=== PATIENT | female | born 1985 | race African-American/Black ===

== ENCOUNTER 2016-09-26 01:32 | Emergency (ER) | payer SELFPAY ==
[~2016-09-26 01:32] MED LIST: COLACE-DPS100 MG PO; MOTRIN-DPS800 MG PO; MYLICON DPS80 MG PO; NIPPLECREAM TP; PERCOCET 5 DPS1 TAB PO; PRENATAL VIT1 TAB PO
--- NOTE | 2016-09-26 07:06 | ER ---
ADMIT: 09/26/2016 RM/LOC: ER [facility] MR#: [id number] [place], [place] [address] [address] DE [address] [place] [address] Emergency Room Report SEX: F AGE: 31 : 1985 DATE: 09/26/2016 The patient is a 31-year-old [place] female complaining of acute onset right- sided facial jaw, neck, and scalp pain. Exam remarkable for acutely uncomfortable, nontoxic, afebrile female with seborrheic dermatitis of scalp and reactive lymphadenopathy anterior and posterior cervical chain. No suppurative discharge noted. Treated with Augmentin 875 b.i.d. #20. Head and Shoulders shampoo daily, and follow up Dr. Tierney as needed. Magdaleno Mcclelland MD/ vargas JOB #: [id number] CC: Magdaleno Mcclelland MD, Attending Physician Monster Tierney MD, Family Physician Monster Tierney MD
== END 2016-09-26 02:00 | disposition home or self-care (01) ==
LOC: ER 01:32
DX: I88.9 Nonspecific lymphadenitis, unspecified (principal); L21.9 Seborrheic dermatitis, unspecified

== ENCOUNTER 2016-10-10 16:14 | Emergency (ER) | payer SELFPAY ==
--- NOTE | 2016-10-18 10:17 | ER ---
ADMIT: 10/10/2016 RM/LOC: ER [facility] MR#: [id number] [address] [id number] [address] DE GU[address]MAN [address] [place] [address] Emergency Room Report SEX: F AGE: 31 : 1985 DATE: 10/10/2016 ADDENDUM: CHIEF COMPLAINT: Head burning. HISTORY OF PRESENT ILLNESS: This is a 31-year-old, who was actually seen her in the ER about 2 weeks ago. She was placed on Augmentin for a questionable sinus issue, it sounded like. She finished the antibiotic. She said she is still having burning in her head, almost feels like she was describing in her scalp. I asked her if she had bought Head and Shoulder shampoo like Dr. Mcclelland recommended. It does not sound like she did. I still recommended doing that. She seems also to have a headache with this. I did give her Toradol 15 mg IM. I am then discharging her home. 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 CLINICAL IMPRESSION: 1. Seborrhoic dermatitis. 2. Headache. DAVE Patterson / Blas Waters MD / vargas JOB #: [id number] CC: Blas Waters MD, Attending Physician Monster Tierney MD, Family Physician
== END 2016-10-10 17:25 | disposition home or self-care (01) ==
LOC: ER 16:14
DX: L21.9 Seborrheic dermatitis, unspecified (principal); Z88.8 Allergy status to other drugs, medicaments and biological substances

== ENCOUNTER → 2016-10-26 | Outpatient (CLI) | payer SELFPAY | END | disposition home or self-care (01) | LOC: RAD.S 09:00 | DX: R10.9 Unspecified abdominal pain (principal) ==